=== PATIENT | male | born 1980 | race American Indian/Alaskan Native ===

== ENCOUNTER 2019-01-10 01:27 | Emergency (ER) | payer MEDICAID ==
[~2019-01-10] VITALS: Ht 172.7 cm; Wt 75.0 kg
[~2019-01-10 01:27] MED LIST: CLIN-96 PO
[2019-01-10] MEDS ORDERED: TETanus/Pertussis (Acell)/Diphther VAC/PF (Tdap-Adult) 0.5ml syringe IM ONE (02:05)
--- NOTE | 2019-01-10 02:36 | NUR ---
APD AT BEDSIDE. PT REPORTS PAIN OF 8OUT OF 10 TO THE BACK OF HIS NECK AND BETWEEN HIS SHOULDER BLADES. CURRENT VSS. JUST GIVEN TETNUS BOOSTER. AWAITING CT READ. REMAINS IN C COLLAR.
[2019-01-10] MEDS ORDERED: ibuprofen 200mg tablet PO ONE (03:10)
[2019-01-10 03:20] VITALS: BP 122/50
== END 2019-01-10 03:20 ==
LOC: ER 01:27
DX: S80.812A Abrasion, left lower leg, initial encounter (principal); T14.8XXA Other injury of unspecified body region, initial encounter; F17.200 Nicotine dependence, unspecified, uncomplicated; R07.89 Other chest pain; M54.6 Pain in thoracic spine; F12.90 Cannabis use, unspecified, uncomplicated; F15.90 Other stimulant use, unspecified, uncomplicated; F10.99 Alcohol use, unspecified with unspecified alcohol-induced disorder; Z86.19 Personal history of other infectious and parasitic diseases; Z79.899 Other long term (current) drug therapy; V29.9XXA Motorcycle rider (driver) (passenger) injured in unspecified traffic accident, initial encounter; Y93.89 Activity, other specified; Y92.488 Other paved roadways as the place of occurrence of the external cause; Y99.8 Other external cause status; Y90.9 Presence of alcohol in blood, level not specified
CPT/HCPCS: 70450; 71250; 72125; 90471; 99284

== ENCOUNTER 2019-02-28 23:16 | Emergency (ER) | payer MEDICAID ==
[~2019-02-28] VITALS: Ht 172.7 cm; Wt 72.0 kg
[2019-02-28] MEDS ORDERED: NO HOME MEDS (23:36)
[2019-03-01] MEDS ORDERED: LIDOcaine 1% w/EPI 1:200,000 injection 10mL vial IM ONE (01:25)
[2019-03-01 01:30] VITALS: BP 108/62
[2019-03-01] MEDS ORDERED: LIDOcaine 1% W/epiNEPHrine 1:100,000 20ml vial IJ ONE (01:35)
[2019-03-01] MEDS ORDERED: CLIN150C2 PO (02:09)
[2019-03-01] MEDS ORDERED: SULF1TAB49 PO (02:09)
--- NOTE | 2019-03-01 10:36 | NUR ---
CALLED THOMAS ARAUJO CALLED IN [facility] AND BACTRIM DS. I THEN CALLED AND LEFT A MESSAGE ON THE PHONE NUMBER AVAILABLE AND LET THEM KNOW THAT THE RX WAS CALLED IN.
== END 2019-03-01 02:35 | disposition home or self-care (01) ==
LOC: ER 23:16
DX: N49.2 Inflammatory disorders of scrotum (principal); F10.99 Alcohol use, unspecified with unspecified alcohol-induced disorder; F12.90 Cannabis use, unspecified, uncomplicated; F15.90 Other stimulant use, unspecified, uncomplicated; Z86.19 Personal history of other infectious and parasitic diseases; Z79.899 Other long term (current) drug therapy; Y90.9 Presence of alcohol in blood, level not specified
CPT/HCPCS: 10160; 99284